=== PATIENT | male | born 2000 | race Hispanic/Latino ===

== ENCOUNTER 2025-05-11 11:24 | Emergency (ER) | payer SELFPAY ==
--- NOTE | 2025-05-11 11:40 | EDPHYS ---
Physician Documentation [facility] Name: Nj Walls Age: 25 yrs Sex: Male : 2000 Arrival Date: 05/11/2025 Time: 11:24 Bed 8 Private MD: ED Physician Alonso Sales HPI: 05/11 12:30 This 25 yrs old Male presents to ER via Ambulatory with complaints of Rash. kb 12:30 Patient is a 25-year-old male who presents for rash to trunk upper extremities and neck kb that started overnight. States he was working under a house with his father yesterday and believes he came into contact with something that he is allergic to. Father has similar rash. Reports itching.. Historical: - Allergies: 11:36 No Known Allergies; ll1 - PMHx: 11:36 None; ll1 - PSHx: 11:36 None; ll1 - Immunization history:: Adult Immunizations up to date. - Infectious Disease History:: Denies. - Social history:: Smoking status: Patient denies any tobacco usage or history of. ROS: 12:30 Constitutional: As per HPI kb Exam: 12:30 Constitutional: This is a well developed, well nourished patient who is awake, alert, kb and in no acute distress. Head/Face: Normocephalic, atraumatic. ENT: Moist Mucous membranes Cardiovascular: Regular rate Respiratory: Respirations even and unlabored. No increased work of breathing. Talking in full sentences MS/ Extremity: Pulses equal, no cyanosis. Neurovascular intact. Full, normal range of motion. Neuro: Awake and alert, GCS 15, oriented to person, place, time, and situation. 12:30 Skin: consistent with contact dermatitis, on the chest, abdomen, right arm, left arm and neck, Vital Signs: 11:36 BP 130 / 76; Pulse 82; Resp 17; Temp 98.3; Pulse Ox 100% on R/A; ll1 13:00 BP 130 / 76; Pulse 82; Resp 16; Pulse Ox 99% ; db MDM: 11:31 Medical Screening Exam initiated kb 12:30 Differential diagnosis: impetigo, allergic reaction, parasite infection. Data reviewed: kb vital signs, nurses notes. Historians other than the Patient: Parent: Mother. Counseling: I had a detailed discussion with the patient and/or guardian regarding the historical points, exam findings, and any diagnostic results supporting the discharge/admit diagnosis, the need for outpatient follow up, a family practitioner, to return to the emergency department if symptoms worsen or persist or if there are any questions or concerns that arise at home. Administered Medications: 13:05 Drug: predniSONE PO 40 mg PO once Route: PO; db 13:05 Follow up: Response: No adverse reaction db 13:05 Drug: Famotidine PO 20 mg PO once Route: PO; db 13:05 Follow up: Response: No adverse reaction db 13:05 Drug: diphenhydrAMINE PO 25 mg PO once Route: PO; db 13:06 Follow up: Response: No adverse reaction db Disposition: 05/12 07:31 Co-signature as Attending Physician, Alonso Sales MD I agree with the assessment and belinda plan of care. Disposition Summary: 05/11/25 11:39 Discharge Ordered Notes: Location: Home kb Condition: Stable kb Diagnosis - Allergic contact dermatitis, unspecified cause kb Followup: kb - With: Emergency Department - When: As needed - Reason: Worsening of condition Followup: kb - With: Private Physician - When: 2 - 3 days - Reason: Recheck today's complaints, Continuance of care, Re-evaluation by your physician Discharge Instructions: - Discharge Summary Sheet kb - Contact Dermatitis, [id number] kb Forms: - Medication Reconciliation Form kb - Antibiotic Education kb - Prescription Opioid Use kb - Patient Portal Instructions kb - Leadership Thank You Letter kb Prescriptions: - Pepcid 20 mg Oral Tablet - take 1 tablet ORAL route every 12 hours for 5 days; 10 tablet; Refills: 0, kb Product Selection Permitted - Prednisone 20 mg Oral Tablet - take 1 tablet ORAL route once daily for 5 days; 5 tablet; Refills: 0, Product kb Selection Permitted Signatures: Magda Simons, GONZALEZ NUNES-Alonso Corral MD MD cha Lewis, Lynsay RN RN ll1 Lilibeth Dietrich RN RN db
--- NOTE | 2025-05-11 11:40 | ER ---
Nurse's Notes [facility] Name: Nj Gonzalezc Age: 25 yrs Sex: Male : 2000 Arrival Date: 05/11/2025 Time: 11:24 Bed 8 Private MD: Diagnosis: Allergic contact dermatitis, unspecified cause Presentation: 05/11 11:36 Chief complaint: Patient states: Rash started after working on a beam under the house. ll1 Neck, trunk, arm, very itchy. Coronavirus screen: Client denies travel out of the [place] in the last 14 days. At this time, the client does not indicate any symptoms associated with coronavirus-19. Ebola Screen: Patient denies travel to an Ebola-affected area in the 21 days before illness onset. Initial Sepsis Screen: Does the patient meet any 2 criteria? No. Patient's initial sepsis screen is negative. Does the patient have a suspected source of infection? No. Patient's initial sepsis screen is negative. Risk Assessment: Do you want to hurt yourself or someone else? Patient reports no desire to harm self or others. Onset of symptoms. Onset of symptoms was May 11, 2025. 11:36 Method Of Arrival: Ambulatory ll1 11:36 Acuity: BELA 4 ll1 Historical: - Allergies: 11:36 No Known Allergies; ll1 - PMHx: 11:36 None; ll1 - PSHx: 11:36 None; ll1 - Immunization history:: Adult Immunizations up to date. - Infectious Disease History:: Denies. - Social history:: Smoking status: Patient denies any tobacco usage or history of. Screenin:07 [facility] ED Fall Risk Assessment (Adult) History of falling in the last 3 months, db including since admission No falls in past 3 months (0 pts) Confusion or Disorientation No (0 pts) Intoxicated or Sedated No (0 pts) Impaired Gait No (0 pts) Mobility Assist Device Used No (0 pt) Altered Elimination No (0 pt) Score/Fall Risk Level 0 - 2 = Low Risk Oriented to surroundings, Maintained a safe environment. Abuse screen: Denies threats or abuse. Denies injuries from another. Nutritional screening: No deficits noted. Tuberculosis screening: No symptoms or risk factors identified. Assessment: 13:06 Reassessment: Patient appears in no apparent distress at this time. Patient and/or db family updated on plan of care and expected duration. Pain level reassessed. Patient is alert, oriented x 3, equal unlabored respirations, skin warm/dry/pink. General: Appears in no apparent distress. comfortable, Behavior is calm, cooperative. Pain: Denies pain. Neuro: Level of Consciousness is awake, alert, obeys commands, Oriented to person, place, time, situation. Respiratory: Airway is patent Respiratory effort is even, unlabored, Respiratory pattern is regular, symmetrical. Vital Signs: 11:36 BP 130 / 76; Pulse 82; Resp 17; Temp 98.3; Pulse Ox 100% on R/A; ll1 13:00 BP 130 / 76; Pulse 82; Resp 16; Pulse Ox 99% ; db ED Course: 11:30 Patient arrived in ED. im 11:31 [facility] kb 11:31 Alonso Sales MD is Attending Physician. kb 11:38 Triage completed. ll1 11:38 Arm band placed on. ll1 12:40 Mae Kunz, RN is Primary Nurse. cc6 13:07 Patient has correct armband on for positive identification. Provided Education on: db DISCHARGE AND PRESCRIPTIONS. 13:07 No provider procedures requiring assistance completed. Patient did not have IV access db during this emergency room visit. Administered Medications: 13:05 Drug: predniSONE PO 40 mg PO once Route: PO; db 13:05 Follow up: Response: No adverse reaction db 13:05 Drug: Famotidine PO 20 mg PO once Route: PO; db 13:05 Follow up: Response: No adverse reaction db 13:05 Drug: diphenhydrAMINE PO 25 mg PO once Route: PO; db 13:06 Follow up: Response: No adverse reaction db Medication: 13:07 VIS not applicable for this client. db Outcome: 11:39 Discharge ordered by MD. kb 13:07 Discharged to home ambulatory, db 13:07 Condition: stable 13:07 Discharge instructions given to patient, Instructed on discharge instructions, follow up and referral plans. Prescriptions given X 2, 13:08 Patient left the ED. db Signatures: Magda Simons FNP-C FNP-Ckb Lewis, Lynsay, RN RN 1 Lilibeth Dietrich RN RN db KhanAudrey sheffield Cassandra, RN RN cc6
[2025-05-11] MEDS ORDERED: DIPHENHYDRAMINE 25 MG TAB/CAP ONE (12:43)
[2025-05-11] MEDS ORDERED: predniSONE 20 MG TAB ONE (12:43)
[2025-05-11] MEDS ORDERED: FAMOTIDINE 20 MG TAB ONE (12:43)
[2025-05-11 13:12] VITALS: BP 130/76; TEMP 98.3
[2025-05-11 13:14] VITALS: O2SAT 99
== END 2025-05-11 13:08 | disposition home or self-care (01) ==
LOC: ER 11:24
DX: L23.9 Allergic contact dermatitis, unspecified cause (principal)
CPT/HCPCS: 99283; J7512